=== PATIENT | female | born 1965 | race Caucasian/White ===

== ENCOUNTER 2023-08-12 04:50 | Emergency (ER) | payer MEDICAID ==
[~2023-08-12] VITALS: Ht 149.9 cm; Wt 68.0 kg
[2023-08-12 05:04] VITALS: BP 145/89; PULSE 94; RESP 18; TEMP 98.7; O2SAT 98
== END 2023-08-12 05:41 | disposition left against medical advice (07) ==
LOC: ER 05:31
DX: R00.2 Palpitations (principal); I10 Essential (primary) hypertension; Z53.21 Procedure and treatment not carried out due to patient leaving prior to being seen by health care provider
CPT/HCPCS: 99281